=== PATIENT | male | born 1960 | race Caucasian/White ===

== ENCOUNTER 2016-11-17 08:57 | Emergency (ER) | payer MEDICAID, OTHER ==
[~2016-11-17] VITALS: Ht 185.4 cm; Wt 127.0 kg
[2016-11-17] MEDS ORDERED: SODIUM CHLORIDE 0.9% 1,000 ML IV ONE (09:35)
[2016-11-17] MEDS ORDERED: SODIUM CHLORIDE 0.9% 250 ML IV ONE (09:35)
[2016-11-17] MEDS ORDERED: HYDROmorphone HCL 2 MG/ML VL IV ONE ×3 (09:45→15:45)
[2016-11-17] MEDS ORDERED: PROMETHAZINE HCL 25 MG/ML 1ML IV ONE (09:45)
[2016-11-17 10:07] LABS: Basophils # (auto) 0.1 uL; Basophils % (auto) 0.8 % (0.0-2.0); DEFINITIVE VIEW TRANSMISSION; Eosinophils # (auto) 0.8 uL; Eosinophils % (auto) 8.6 % (0.0-7.0); Hematocrit 37.3 % (41.0-53.0); Hemoglobin 11.7 g/dL (13.5-17.5); Lymphocytes # (auto) 1.2 uL; Lymphocytes % (auto) 13.4 % (10.0-50.0); Mean Corpuscular Hemoglobin 25.6 pg (28.0-32.0); Mean Corpuscular Hgb Conc. 31.4 g/dL (32.0-36.0); Mean Corpuscular Volume 81.7 fL (80.0-100.0); Mean Platelet Volume 6.6 fL (7.4-10.4); Monocytes # (auto) 0.5 uL; Monocytes % (auto) 5.8 % (0.0-12.0); Neutrophils # (auto) 6.4 uL; Neutrophils % (auto) 71.4 % (37.0-80.0); Platelet Count (auto) 386 10^3/uL (140-450); White Blood Cell 8.9 10^3/uL (4.4-10.8)
[2016-11-17 10:24] LABS: Albumin 3.1 g/dL (3.4-5.0); BUN/Creatinine Ratio 16.2; Bilirubin, Total 0.3 mg/dL (0.2-1.0); Calcium 9.2 mg/dL (8.5-10.1); Potassium 4.5 mmol/L (3.5-5.1); Total Protein 7.7 g/dL (6.4-8.2)
[2016-11-17 10:27] LABS: INR 1.11 (0.9-1.15); Partial Thromboplastin Time 26.4 sec (22.64-33.71); Prothrombin Time 11.4 sec (9.37-12.3)
[2016-11-17] MEDS ORDERED: ONDANSETRON HCL 4 MG/2 ML VIAL IV ONE (12:15)
[2016-11-17] MEDS ORDERED: LABETALOL HCL 5 MG/ML 4ML SYRINGE IV ONE (13:45)
[2016-11-17 14:36] LABS: Urine Bilirubin Negative (Negative); Urine Blood TRACE /uL (Negative); Urine Color Yellow (Yellow); Urine Glucose Normal (Normal); Urine Ketone Negative (Negative); Urine Nitrite Negative (Negative); Urine RBC 4 /hpf (0 - 3); Urine Squamous Epithelial Cell FEW /hpf (<5); Urine Urobilinogen Normal (Negative); Urine pH 5.5 (5.0-8.0)
[2016-11-17 16:33] VITALS: BP 156/90
== END 2016-11-17 16:33 | disposition home or self-care (01) ==
LOC: EDBD 08:57 → ER 09:00
DX: M54.9 Dorsalgia, unspecified (principal); M79.1 Myalgia; R07.9 Chest pain, unspecified; R11.2 Nausea with vomiting, unspecified; R10.9 Unspecified abdominal pain; F17.210 Nicotine dependence, cigarettes, uncomplicated; Z85.46 Personal history of malignant neoplasm of prostate; I10 Essential (primary) hypertension
CPT/HCPCS: 36415; 71010; 80053; 81001; 84484; 85025; 85610; 85730; 93005; 96361; 96374; 96375; 96376; 99285; J1170; J2405; J2550; J3490; J7030

== ENCOUNTER 2016-11-29 23:18 | Emergency (ER) | payer MEDICAID ==
[~2016-11-29] VITALS: Ht 182.9 cm; Wt 127.0 kg
[2016-11-30 00:03] LABS: Basophils # (auto) 0.1 uL; Basophils % (auto) 0.5 % (0.0-2.0); DEFINITIVE VIEW TRANSMISSION; Eosinophils # (auto) 0.3 uL; Eosinophils % (auto) 3.2 % (0.0-7.0); Hematocrit 36.3 % (41.0-53.0); Hemoglobin 12.1 g/dL (13.5-17.5); Lymphocytes # (auto) 0.8 uL; Mean Corpuscular Hemoglobin 26.9 pg (28.0-32.0); Mean Corpuscular Hgb Conc. 33.4 g/dL (32.0-36.0); Mean Corpuscular Volume 80.4 fL (80.0-100.0); Mean Platelet Volume 6.6 fL (7.4-10.4); Monocytes # (auto) 0.5 uL; Neutrophils # (auto) 7.6 uL; Neutrophils % (auto) 82.3 % (37.0-80.0); Platelet Count (auto) 430 10^3/uL (140-450); Red Cell Distribution Width 17.2 % (11.6-16.0); White Blood Cell 9.2 10^3/uL (4.4-10.8)
[2016-11-30 00:27] LABS: Albumin 3.3 g/dL (3.4-5.0); BUN/Creatinine Ratio 12.1; Calcium 8.6 mg/dL (8.5-10.1)
[2016-11-30 00:42] LABS: Bilirubin, Total 0.4 mg/dL (0.2-1.0); Total Protein 7.2 g/dL (6.4-8.2)
[2016-11-30] MEDS ORDERED: IOHEXOL 300 MG/ML 100ML BOTTLE IJ ONE (03:21)
[2016-11-30] MEDS ORDERED: SODIUM CHLORIDE 0.9% 2,000 ML IV ONE (03:30)
[2016-11-30] MEDS ORDERED: ONDANSETRON HCL 4 MG/2 ML VIAL IV ONE (03:30)
[2016-11-30] MEDS ORDERED: SODIUM CHLORIDE 0.9% 1,000 ML IV ONE (05:30)
[2016-11-30 06:15] VITALS: BP 163/96
== END 2016-11-30 06:05 | disposition home or self-care (01) ==
LOC: EDBD 23:18 → ER 23:18
DX: K52.9 Noninfective gastroenteritis and colitis, unspecified (principal); F17.210 Nicotine dependence, cigarettes, uncomplicated; Z85.46 Personal history of malignant neoplasm of prostate
CPT/HCPCS: 36415; 74177; 80053; 85025; 93005; 96361; 96374; 99285; J2405; J7030; Q9967

== ENCOUNTER 2017-02-04 20:03 | Inpatient (IN) | payer MEDICAID ==
[~2017-02-04] VITALS: Ht 182.9 cm; Wt 115.1 kg
[2017-02-04 21:21] LABS: Basophils # (auto) 0 uL; Basophils % (auto) 0.4 % (0.0-2.0); Eosinophils # (auto) 0.2 uL; Eosinophils % (auto) 2.3 % (0.0-7.0); Hematocrit 39.4 % (41.0-53.0); Hemoglobin 13.3 g/dL (13.5-17.5); Lymphocytes # (auto) 0.3 uL; Lymphocytes % (auto) 3.8 % (10.0-50.0); Mean Corpuscular Hemoglobin 27.9 pg (28.0-32.0); Mean Corpuscular Hgb Conc. 33.6 g/dL (32.0-36.0); Mean Platelet Volume 7.8 fL (7.4-10.4); Monocytes # (auto) 0.9 uL; Monocytes % (auto) 12.1 % (0.0-12.0); Neutrophils # (auto) 5.9 uL; Neutrophils % (auto) 81.4 % (37.0-80.0); Platelet Count (auto) 252 10^3/uL (140-450); Red Cell Distribution Width 16.7 % (11.6-16.0); White Blood Cell 7.3 10^3/uL (4.4-10.8)
[2017-02-04 21:46] LABS: Albumin 3.8 g/dL (3.4-5.0); BUN/Creatinine Ratio 20.9; Bilirubin, Total 0.3 mg/dL (0.2-1.0); Potassium 3.9 mmol/L (3.5-5.1); Total Protein 7.6 g/dL (6.4-8.2)
[2017-02-05] MEDS ORDERED: TEMAZEPAM 15 MG CAP PO PRN (04:00)
[2017-02-05] MEDS: SODIUM CHLORIDE 0.9% 1,000 ML IV SCH ×4 (05:16→20:13)
[2017-02-05] MEDS: ONDANSETRON HCL 4 MG/2 ML VIAL IV PRN ×3 (05:19→13:23)
[2017-02-05 05:28] VITALS: BP 141/89
[2017-02-05] MEDS: HYDROmorphone HCL 2 MG/ML VL IV PRN ×4 (05:30→23:28)
[2017-02-05] MEDS ORDERED: FENT50DI11 TD (05:40)
[2017-02-05] MEDS ORDERED: BICA50TA6 PO (05:40)
[2017-02-05 08:59] VITALS: BP 114/72
[2017-02-05 09:23] LABS: INR 1.08 (0.9-1.15); Prothrombin Time 11.7 sec (9.37-12.3)
[2017-02-05] MEDS: BICALUTAMIDE 50 MG TAB PO SCH (10:00)
[2017-02-05] MEDS ORDERED: PANTOPRAZOLE SODIUM 40 MG/10 ML VIAL IV ONE (11:45)
[2017-02-05] MEDS ORDERED: fentaNYL 50MCG/HR 50 MCG/HR PAT TD SCH (11:45)
[2017-02-05] MEDS ORDERED: HYDROcodone-ACET 5/325MG TAB PO PRN (11:45)
[2017-02-05] MEDS ORDERED: CLINIMIX PER PHARMACY 0 ML IV SCH (11:45)
[2017-02-05] MEDS ORDERED: DEXTROSE (50%) 50ML SYRG IV SCH (12:15)
[2017-02-05] MEDS ORDERED: BARIUM SULFATE 98% 340 GM PWDR ONE (12:28)
[2017-02-05 12:30] LABS: Albumin 3.2 g/dL (3.4-5.0); BUN/Creatinine Ratio 23.2; Bilirubin, Total 0.4 mg/dL (0.2-1.0); Calcium 8.6 mg/dL (8.5-10.1); Magnesium 2.3 mg/dL (1.6-2.6); Phosphorus 3.8 mg/dL (2.5-4.90); Potassium 3.9 mmol/L (3.5-5.1); Total Protein 6.5 g/dL (6.4-8.2)
[2017-02-05 13:00] VITALS: BP 139/86
[2017-02-05] MEDS ORDERED: DEXAMETHASONE SOD PHOS 4 MG/1ML SDV INJ IV ONE (14:00)
[2017-02-05] MEDS ORDERED: LORazepam 2MG/ML-1ML VIAL IV ONE (14:00)
[2017-02-05] MEDS ORDERED: LIDOCAINE 1% HCL (LOCAL ANESTH.) INJ 20ML MDV ID ONE (15:00)
[2017-02-05] MEDS ORDERED: GADOPENTETATE DIMEGLUMINE (10MMOL/20 ML) VIAL IV ONE (15:40)
[2017-02-05 17:00] VITALS: BP 154/93
[2017-02-05] MEDS ORDERED: PROCHLORPERAZINE EDISYLATE 5 MG/ML 2ML VIAL IV SCH (18:00)
[2017-02-05] MEDS: InsuLIN REG 1unit/0.01ml Soln (100units/ml) SC SCH ×2 (18:00→23:39)
[2017-02-05] MEDS: ACCU-CHEK COMFORT CURVE STRIP VI SCH ×2 (18:09→23:40)
[2017-02-05] MEDS ORDERED: PROCHLORPERAZINE EDISYLATE 5 MG/ML 2ML VIAL IV PRN (18:45)
[2017-02-05 19:50] LABS: Urine Bilirubin Negative (Negative); Urine Blood Negative /uL (Negative); Urine Color Yellow (Yellow); Urine Glucose Normal (Normal); Urine Nitrite Negative (Negative); Urine RBC <1 /hpf (0 - 3); Urine Urobilinogen Normal (Negative)
[2017-02-05] MEDS ORDERED: CLINIMIX PER PHARMACY IV NR ×4 (20:00)
[2017-02-05 20:02] LABS: Urine Ketone 1+ (Negative)
[2017-02-05 22:06] VITALS: BP 136/81
[2017-02-05] MEDS: SODIUM CHLOR 0.9% PF (SALINE LOCK) 10ML VIAL IV SCH (22:16)
[2017-02-06] MEDS ORDERED: SODIUM CHLORIDE 0.9% 1,000 ML IV SCH ×2 (03:56→12:15)
[2017-02-06 05:00] VITALS: BP 137/97
[2017-02-06] MEDS: HYDROmorphone HCL 2 MG/ML VL IV PRN (05:51)
[2017-02-06] MEDS: InsuLIN REG 1unit/0.01ml Soln (100units/ml) SC SCH ×4 (06:03→23:47)
[2017-02-06] MEDS: ACCU-CHEK COMFORT CURVE STRIP VI SCH ×4 (06:03→23:47)
[2017-02-06] MEDS ORDERED: GADOPENTETATE DIMEGLUMINE (10MMOL/20 ML) VIAL IV ONE (07:40)
[2017-02-06] MEDS: SODIUM CHLORIDE 0.9% 1,000 ML IV SCH (07:58)
[2017-02-06 08:12] LABS: Basophils # (auto) 0 uL; Basophils % (auto) 0.5 % (0.0-2.0); Eosinophils # (auto) 0 uL; Eosinophils % (auto) 0.3 % (0.0-7.0); Hematocrit 35.4 % (41.0-53.0); Hemoglobin 11.7 g/dL (13.5-17.5); Lymphocytes # (auto) 0.2 uL; Lymphocytes % (auto) 3.4 % (10.0-50.0); Mean Corpuscular Hemoglobin 27.8 pg (28.0-32.0); Mean Corpuscular Hgb Conc. 33.1 g/dL (32.0-36.0); Mean Corpuscular Volume 83.9 fL (80.0-100.0); Mean Platelet Volume 7.8 fL (7.4-10.4); Monocytes # (auto) 0.8 uL; Monocytes % (auto) 13.8 % (0.0-12.0); Neutrophils # (auto) 4.8 uL; Platelet Count (auto) 241 10^3/uL (140-450); Red Cell Distribution Width 16.8 % (11.6-16.0); White Blood Cell 5.9 10^3/uL (4.4-10.8)
[2017-02-06 08:24] LABS: BUN/Creatinine Ratio 19.2; Bilirubin, Total 0.3 mg/dL (0.2-1.0); Calcium 8.1 mg/dL (8.5-10.1); Phosphorus 3.5 mg/dL (2.5-4.90); Potassium 4.5 mmol/L (3.5-5.1); Total Protein 6.3 g/dL (6.4-8.2)
[2017-02-06 08:25] LABS: Magnesium 2.2 mg/dL (1.6-2.6)
[2017-02-06 09:00] VITALS: BP 130/94
[2017-02-06] MEDS: PANTOPRAZOLE SODIUM 40 MG/10 ML VIAL IV SCH (09:41)
[2017-02-06] MEDS: BICALUTAMIDE 50 MG TAB PO SCH (09:41)
[2017-02-06] MEDS: SODIUM CHLOR 0.9% PF (SALINE LOCK) 10ML VIAL IV SCH ×2 (09:42→22:05)
[2017-02-06] MEDS ORDERED: CASODEX 50 MG PO SCH (10:00)
[2017-02-06 13:00] VITALS: BP 155/79
[2017-02-06 18:06] VITALS: BP 156/86
[2017-02-06] MEDS ORDERED: CLINIMIX PER PHARMACY IV NR ×8 (20:00)
[2017-02-06 22:00] VITALS: BP 134/64
[2017-02-07 05:06] VITALS: BP 154/85
[2017-02-07] MEDS: InsuLIN REG 1unit/0.01ml Soln (100units/ml) SC SCH ×2 (05:37→12:00)
[2017-02-07] MEDS: ACCU-CHEK COMFORT CURVE STRIP VI SCH ×2 (05:37→12:00)
[2017-02-07 07:05] LABS: BUN/Creatinine Ratio 19.8; Bilirubin, Total 0.3 mg/dL (0.2-1.0); Calcium 8.1 mg/dL (8.5-10.1); Magnesium 2.1 mg/dL (1.6-2.6); Phosphorus 3.1 mg/dL (2.5-4.90); Total Protein 6.2 g/dL (6.4-8.2)
[2017-02-07 08:00] VITALS: BP 142/86
[2017-02-07] MEDS ORDERED: FLUMAZENIL 0.1 MG/ML INJ 10ML MDV IV ONE (08:15)
[2017-02-07] MEDS ORDERED: NALOXONE HCL 0.4 MG/ML VIAL ONE (08:15)
[2017-02-07] MEDS ORDERED: LIDOCAINE VISCOUS 2% 15ML UD ONE (08:15)
[2017-02-07] MEDS ORDERED: diphenhdrAMINE HCL 50 MG/1 ML VL ONE (08:15)
[2017-02-07] MEDS ORDERED: SODIUM CHLORIDE LOCK 10 ML ONE (08:22)
[2017-02-07 09:00] VITALS: BP 142/86
[2017-02-07] MEDS: PANTOPRAZOLE SODIUM 40 MG/10 ML VIAL IV SCH (09:53)
[2017-02-07] MEDS: BICALUTAMIDE 50 MG TAB PO SCH (09:59)
[2017-02-07] MEDS: SODIUM CHLOR 0.9% PF (SALINE LOCK) 10ML VIAL IV SCH (10:02)
[2017-02-07] MEDS: MIDAZOLAM HCL 5 MG/ML-1ML VIAL ONE ×2 (12:03→12:06)
[2017-02-07] MEDS: fentaNYL CITRATE 100 MCG/2 ML VL ONE ×2 (12:03→12:06)
[2017-02-07 13:11] VITALS: BP 150/92
== END 2017-02-07 14:45 | disposition home health service (06) | DRG 241 ==
LOC: ER 20:07 → EAST 20:08
PROVIDERS: ADMIT Emergency Medicine; ATTEND Internal Medicine
PROC: 02HV33Z Insertion of Infusion Device into Superior Vena Cava, Percutaneous Approach (ICD-10-PCS; principal; 2017-02-05)
PROC: 0DB68ZX Excision of Stomach, Via Natural or Artificial Opening Endoscopic, Diagnostic (ICD-10-PCS; 2017-02-07)
DX: K29.60 Other gastritis without bleeding (principal); N17.9 Acute kidney failure, unspecified; E44.0 Moderate protein-calorie malnutrition; C61 Malignant neoplasm of prostate; N26.1 Atrophy of kidney (terminal); K20.9 Esophagitis, unspecified; E86.0 Dehydration; K29.80 Duodenitis without bleeding; F17.210 Nicotine dependence, cigarettes, uncomplicated; G89.29 Other chronic pain; K59.00 Constipation, unspecified; Z80.0 Family history of malignant neoplasm of digestive organs; Z85.46 Personal history of malignant neoplasm of prostate; Z92.3 Personal history of irradiation; Z68.34 Body mass index [BMI] 34.0-34.9, adult
CPT/HCPCS: 36415; 36569; 43239; 70553; 71010; 76775; 80053; 81001; 82040; 82962; 83690; 83735; 84100; 84478; 85025; 85610; 93005; C9113; J1100; J1815; J2250; J2405

== ENCOUNTER 2017-06-23 02:08 | Emergency (ER) | payer MEDICAID ==
[~2017-06-23] VITALS: Ht 180.3 cm; Wt 90.7 kg
[~2017-06-23 02:08] MED LIST: BICA50TA6 PO; FENT50DI11 TD
[2017-06-23] MEDS ORDERED: KETOROLAC TROMETH 60MG/2ML VIAL IM ONE (02:45)
[2017-06-23] MEDS ORDERED: SODIUM CHLORIDE 0.9% 1,000 ML IV ONE (03:20)
[2017-06-23] MEDS ORDERED: ONDANSETRON ODT 4 MG TAB PO ONE (03:30)
[2017-06-23] MEDS ORDERED: MORPHINE SULF INJ 2 MG/ML SYRINGE 1ML IV ONE (03:30)
[2017-06-23 04:14] LABS: Basophils # (auto) 0.1 uL; Eosinophils # (auto) 0.2 uL; Eosinophils % (auto) 2.1 % (0.0-7.0); Hematocrit 36.4 % (41.0-53.0); Hemoglobin 12.6 g/dL (13.5-17.5); Lymphocytes % (auto) 9.7 % (10.0-50.0); Mean Corpuscular Hemoglobin 29.2 pg (28.0-32.0); Mean Corpuscular Hgb Conc. 34.6 g/dL (32.0-36.0); Mean Corpuscular Volume 84.2 fL (80.0-100.0); Mean Platelet Volume 7.2 fL (6.9-10.8); Monocytes # (auto) 1.3 uL; Monocytes % (auto) 13.4 % (0.0-12.0); Neutrophils # (auto) 7.4 uL; Neutrophils % (auto) 73.8 % (37.0-80.0); Platelet Count (auto) 228 10^3/uL (140-450); Red Cell Distribution Width 14.2 % (11.8-14.3)
[2017-06-23 04:29] LABS: Albumin 3.4 g/dL (3.4-5.0); Potassium 3.6 mmol/L (3.5-5.1)
[2017-06-23 04:32] LABS: BUN/Creatinine Ratio 14.4; Calcium 8.7 mg/dL (8.5-10.1)
[2017-06-23 04:34] LABS: Bilirubin, Total 0.6 mg/dL (0.2-1.0); Total Protein 6.8 g/dL (6.4-8.2)
[2017-06-23 04:47] LABS: INR 1.02 (0.9-1.15); Partial Thromboplastin Time 29.3 sec (22.64-33.71); Prothrombin Time 11.1 sec (9.37-12.3)
[2017-06-23 05:46] VITALS: BP 130/91
== END 2017-06-23 06:06 | disposition home or self-care (01) ==
LOC: EDUNIT# 02:08 → EDBD 02:08 → ER 02:14
DX: H61.23 Impacted cerumen, bilateral (principal); F17.210 Nicotine dependence, cigarettes, uncomplicated
CPT/HCPCS: 36415; 70450; 71010; 80053; 85025; 85610; 85730; 96361; 96372; 96374; 99285; J1885; J2270; Q0162